=== PATIENT | female | born 1985 | race Caucasian/White ===

== ENCOUNTER 2022-08-02 15:26 | Emergency (ER) | payer SELFPAY ==
[~2022-08-02] VITALS: Ht 165.1 cm; Wt 73.5 kg
--- NOTE | 2022-08-02 15:29 | NUR ---
Patient to ER bed 03 to gown for evaluation. Side rails up.
--- NOTE | 2022-08-02 15:30 | NUR ---
Received pt in bed #3, SOPHIE from home with cc N/V/D with Diarrhea x10 for the past few days. Pt states this is the third time she has had near syncope in her lifetime, however, no real medical history. Pt is stable, NAD, VSS, AAOx3, awaiting assessment by ED MD for plan of care care with disposition.
[2022-08-02 15:31] VITALS: BP_SYST 113
--- NOTE | 2022-08-02 15:45 | NUR ---
ER at bedside examining patient.
[2022-08-02 16:26] LABS: ANION GAP 10 (5-15); CALCIUM 9.3 mg/dL (8.4-11.0); CHLORIDE 103 mmol/L (98-107); CREATININE 0.95 mg/dL (0.55-1.30); GFR AFRICAN AMERICAN 85 mL/min (>90); GLUCOSE 93 mg/dL (70-99); UREA NITROGEN, BLOOD 18 mg/dL (8-21)
[2022-08-02 16:27] LABS: BASOPHILS % (AUTO) 0.1 % (0.0-2.0); EOSINOPHILS # (AUTO) 0.1 K/uL (0.0-0.4); EOSINOPHILS % (AUTO) 0.4 % (0.0-4.0); HEMATOCRIT 44.5 % (36-48); HEMOGLOBIN 14.6 g/dL (12.0-16.0); LYMPHOCYTES # (AUTO) 1.4 K/uL (1.0-5.5); LYMPHOCYTES % (AUTO) 10.6 % (20.5-51.5); MEAN CORPUSCULAR HEMOGLOBIN 27 pg (27-31); MEAN CORPUSCULAR HGB CONC 33 % (32-36); MEAN CORPUSCULAR VOLUME 82 fL (79.0-98.0); MONOCYTES # (AUTO) 0.9 K/uL (0.0-1.0); MONOCYTES % (AUTO) 6.4 % (1.7-9.3); NEUTROPHILS # (AUTO) 11.1 K/uL (1.8-7.7); NEUTROPHILS % (AUTO) 82.5 % (40.0-70.0); PLATELET COUNT (AUTO) 219 K/uL (130-430); RED BLOOD CELL COUNT(AUTO) 5.43 MIL/uL (4.2-6.2); RED CELL DISTRIBUTION WIDTH 13.5 % (9.0-15.0); WHITE BLOOD COUNT (AUTO) 13.5 K/uL (4.8-10.8)
[2022-08-02 16:36] LABS: ALANINE AMINOTRANSFERASE 15 U/L (12-78); ALBUMIN 4.3 g/dL (3.4-4.8); ASPARTATE AMINOTRANSFERASE 13 U/L (10-37); HCG,QUANTITATIVE 0 mIU/ML (0-6); TOTAL BILIRUBIN 0.5 mg/dL (0.0-1.0)
[2022-08-02 16:41] LABS: ACETONE, SERUM NEGATIVE (NEGATIVE)
--- NOTE | 2022-08-02 18:00 | NUR ---
Patient given written and verbal discharge instructions and verbalizes understanding. ER MD discussed with patient the results and treatment provided. Patient in stable condition. ID arm band removed. IV catheter removed intact and dressing applied, no active bleeding. Patient educated to follow up with PMD. Opportunity for questions provided and answered.
== END 2022-08-02 17:55 | disposition home or self-care (01) ==
LOC: SED 15:26 → EDBD 15:26 → SED 17:55
DX: R19.7 Diarrhea, unspecified (principal); R55 Syncope and collapse; R11.0 Nausea; R42 Dizziness and giddiness; Z79.899 Other long term (current) drug therapy
CPT/HCPCS: 36415; 71045; 80053; 82009; 82550; 83605; 84484; 84702; 85025; 93005; 99285